=== PATIENT | male | born 1975 | race Caucasian/White ===

== ENCOUNTER → 2018-02-08 | Outpatient (CLI) | payer BC ==
[~2018-02-08] MED LIST: BENADRYL25 M2 PO; CELEXA 20MG20 MG/TAB PO; CIPRO 500MG TA500 MG PO; JALYN 0.5 MG-0.1 CAP PO; LEXAPRO20 MG PO; PEPCID 20MG TAB20 MG PO; PREDNISONE1 MG; PROSTATE MED
== END ==
LOC: COL.RAD 12:35
DX: N50.89 Other specified disorders of the male genital organs (principal)

== ENCOUNTER → 2019-09-02 | Outpatient (CLI) | payer BC | LOC: COL.RAD 12:51 | DX: N20.0 Calculus of kidney (principal); Z90.79 Acquired absence of other genital organ(s) | CPT/HCPCS: Q9967 ==

== ENCOUNTER → 2020-01-09 | Outpatient (CLI) | payer BC | LOC: ZCOL.LAB 20:33 | DX: J02.9 Acute pharyngitis, unspecified (principal); R51 Headache; Z20.828 Contact with and (suspected) exposure to other viral communicable diseases ==

== ENCOUNTER → 2022-02-04 | Outpatient (CLI) | payer BC | LOC: COL.RAD 10:30 | DX: N50.819 Testicular pain, unspecified (principal); N50.89 Other specified disorders of the male genital organs; Z90.79 Acquired absence of other genital organ(s) ==